=== PATIENT | male | born 1970 | race Caucasian/White ===

== ENCOUNTER 2020-07-21 18:21 | Emergency (ER) | payer MEDICAID | END 2020-07-21 19:40 | disposition left against medical advice (07) | LOC: DL.ED 18:21 | DX: Z53.21 Procedure and treatment not carried out due to patient leaving prior to being seen by health care provider (principal) ==

== ENCOUNTER 2022-06-28 16:12 | Emergency (ER) | payer MEDICAID ==
[2022-06-28 16:31] VITALS: BP 127/94; PULSE 100
== END 2022-06-28 17:31 ==
LOC: DL.ED 16:12
DX: S01.01XA Laceration without foreign body of scalp, initial encounter (principal)
CPT/HCPCS: 70450; 72125; 99283